=== PATIENT | female | born 1970 | race American Indian/Alaskan Native ===

== ENCOUNTER 2018-05-17 09:51 | Emergency (ER) | payer MEDICAID ==
[2018-05-17] MEDS ORDERED: NACL 0.9% 1000 ML 1,000 ML IV ONE (10:35)
[2018-05-17] MEDS ORDERED: DILAUDID ONE (10:56)
[2018-05-17] MEDS ORDERED: ZOFRAN ONE (10:56)
--- NOTE | 2018-05-17 10:57 | Emergency Department Report ---
ED Abdominal Pain HPI - General Chief Complaint: Abdominal Pain Stated Complaint: INGUINAL HERNIA RUPTURE Time Seen by Provider: 05/17/18 10:54 Source: patient Mode of arrival: Wheelchair Limitations: No Limitations - History of Present Illness Initial Comments: Patient is a 48-year-old female that presents to emergency with complaints of bilateral inguinal pain and lower abdominal pain. Patient states she's had 4 surgeries for hernia repair. Patient states she currently has a mesh in place and patient is having intense 10 out of 10 pain. Patient states the pain is not radiating. He states the pain is worse with movement and better with position and rest. Patient also complaining of not having a bowel movement for 2 days. Patient is also complaining of intractable nausea and vomiting 2 days. Patient denies blood in her stool. Patient denies blood in her vomitus MD Complaint: abdominal pain -: Sudden, days(s) (3 days) Location: LLQ, RLQ Radiation: none Migration to: no migration Severity: severe Severity scale (0 -10): 10 Quality: stabbing Consistency: constant Improves With: rest Worsens With: vomiting, movement Associated Symptoms: nausea, vomiting, constipation. denies: diarrhea, fever, chills, dysuria, hematemesis, hematochezia, melena, hematuria, anorexia - Related Data LMP (females 10-50): this week Previous Rx's Medication Instructions Recorded Last Taken Type Clindamycin [Cleocin] 300 mg PO Q8H #21 cap 06/28/14 Unknown Rx Ibuprofen [Motrin] 600 mg PO Q8H PRN #60 tablet 06/28/14 Unknown Rx Mupirocin [Bactroban 2% Oint] 1 applic TP TID #1 tube 06/28/14 Unknown Rx HYDROcodone/APAP 5-325 [[place] 1 each PO Q6HR PRN #12 tablet 05/17/18 Unknown Rx 5-325 mg TAB] Ondansetron [Zofran Odt] 4 mg PO Q6HR PRN #15 tab.rapdis 05/17/18 Unknown Rx Allergies Allergy/AdvReac Type Severity Reaction Status Date / Time cephalexin monohydrate Allergy Swelling Verified 05/17/18 09:53 [From Keflex] Iodine and Iodide Containing Allergy Unknown Verified 05/17/18 09:53 Produc Penicillins Allergy Swelling Verified 05/17/18 09:53 Sulfa (Sulfonamide Allergy Unknown Verified 05/17/18 09:53 Antibiotics) ED Review of Systems ROS: Stated complaint: INGUINAL HERNIA RUPTURE Other details as noted in HPI Constitutional: denies: chills, fever Eyes: denies: eye pain, eye discharge, vision change ENT: denies: ear pain, throat pain Respiratory: denies: cough, shortness of breath, wheezing Cardiovascular: denies: chest pain, palpitations Endocrine: no symptoms reported Gastrointestinal: abdominal pain, nausea, vomiting, constipation. denies: diarrhea Genitourinary: denies: urgency, dysuria, discharge Musculoskeletal: denies: back pain, joint swelling, arthralgia Skin: denies: rash, lesions Neurological: denies: headache, weakness, paresthesias Psychiatric: denies: anxiety, depression Hematological/Lymphatic: denies: easy bleeding, easy bruising ED Past Medical Hx - Past Medical History Previous Medical History?: Yes Hx Diabetes: Yes (during ) Additional medical history: BORN with only one left KIDNEY - Surgical History Past Surgical History?: Yes Hx Appendectomy: Yes Additional Surgical History: HERNIA REPAIR 4 X - Family History Family history: no significant - Social History Smoking Status: Never Smoker Substance Use Type: None - Medications Home Medications: Home Medications Medication Instructions Recorded Confirmed Last Taken Type Clindamycin [Cleocin] 300 mg PO Q8H #21 cap 06/28/14 Unknown Rx Ibuprofen [Motrin] 600 mg PO Q8H PRN #60 tablet 06/28/14 Unknown Rx Mupirocin [Bactroban 2% Oint] 1 applic TP TID #1 tube 06/28/14 Unknown Rx HYDROcodone/APAP 5-325 [[place] 1 each PO Q6HR PRN #12 tablet 05/17/18 Unknown Rx 5-325 mg TAB] Ondansetron [Zofran Odt] 4 mg PO Q6HR PRN #15 tab.rapdis 05/17/18 Unknown Rx ED Physical Exam - General Limitations: No Limitations General appearance: alert, in no apparent distress - Head Head exam: Present: atraumatic, normocephalic - Eye Eye exam: Present: normal appearance - ENT ENT exam: Present: mucous membranes moist - Neck Neck exam: Present: normal inspection - Respiratory Respiratory exam: Present: normal lung sounds bilaterally. Absent: respiratory distress - Cardiovascular Cardiovascular Exam: Present: regular rate, normal rhythm. Absent: systolic murmur, diastolic murmur, rubs, gallop - GI/Abdominal GI/Abdominal exam: Present: soft, tenderness (bilateral tenderness. Left and right lower quadrant tenderness), normal bowel sounds - Extremities Exam Extremities exam: Present: normal inspection - Back Exam Back exam: Present: normal inspection - Neurological Exam Neurological exam: Present: alert, oriented X3 - Psychiatric Psychiatric exam: Present: normal affect, normal mood - Skin Skin exam: Present: warm, dry, intact, normal color. Absent: rash ED Course Vital Signs 05/17/18 05/17/18 05/17/18 09:53 10:49 11:00 Temperature 98.5 F Pulse Rate 84 Respiratory 16 Rate Blood Pressure 112/68 134/81 118/71 O2 Sat by Pulse 100 Oximetry 05/17/18 11:15 Temperature Pulse Rate Respiratory Rate Blood Pressure 107/61 O2 Sat by Pulse Oximetry - Reevaluation(s) Reevaluation #1: Initial evaluation done. Patient is complaining of significant nausea and vomiting as well as abdominal pain. Patient will be given pain medications and antibiotics. Patient will require CT scan however patient is allergic to IV dye and due to her nausea and will not be able to tolerate oral contrast. So a CT without IV and oral contrast will be done. 05/17/18 11:06 Patient states the pain is improved. Patient states the pain is 2 out of 10. Patient states the nausea and vomiting have resolved. 05/17/18 13:15 Discussed all results with patient. Patient is stable for discharge. Patient will be discharged home. Patient given discharge instructions. Patient given follow-up instructions. Patient was understanding of all structures. 05/17/18 13:28 ED Medical Decision Making - Lab Data Result diagrams: 05/17/18 10:46 05/17/18 10:46 - Radiology Data Radiology results: report reviewed CT ABDOMEN PELVIS WITHOUT CONTRAST: HISTORY: abdominal pain. COMPARISON: none. TECHNIQUE: Helical CT in 1.25mm intervals without IV contrast. Sagittal and coronal reconstructions. FINDINGS: Lung bases: Normal. Liver: Normal. Biliary system: Normal. Pancreas: Normal. Spleen: Normal. Kidneys/ureters/bladder: The right kidney is low lying and rotated laterally. The left kidney is unremarkable. The ureters and bladder are within normal limits. Adrenal glands: Normal. Aorta: Normal. Intestines: Normal. Appendix: Normal. Pelvic viscera: A 3.1 cm right ovarian cyst is identified. The left adnexa and uterus are unremarkable. Bilateral Essure devices are in place. Ascites: Small pelvic ascites. Adenopathy: None. Musculoskeletal: Normal. IMPRESSION: 3.1 cm right ovarian cyst and small pelvic ascites. Right renal ectopia. - Medical Decision Making Patient is a 48-year-old female presents to [facility] with extreme abdominal pain and inguinal pain. Patient's CT abdomen was negative. I discussed the case with Dr. Levy and Dr. Levy agrees with the patient is stable and can be discharged home. Patient will follow-up with Dr. Levy in his office. Patient's findings are consistent with a gastroenteritis and abdominal pain. Patient responded well to therapy. Patient will be discharged home. Patient tolerated by mouth intake. Patient nausea vomiting and pain resolved prior to discharge. Patient given discharge instructions. Patient given medication instructions. UA is negative for UTI. - Differential Diagnosis abdominal pain. Inguinal hernia. Gastroenteritis. Nausea vomiting Critical care attestation.: If time is entered above; I have spent that time in minutes in the direct care of this critically ill patient, excluding procedure time. ED Disposition Clinical Impression: Gastroenteritis Abdominal pain Qualifiers: Abdominal location: lower abdomen, unspecified Qualified Code(s): R10.30 - Lower abdominal pain, unspecified Nausea & vomiting Qualifiers: Vomiting type: unspecified Vomiting Intractability: non-intractable Qualified Code(s): R11.2 - Nausea with vomiting, unspecified Ovarian cyst Qualifiers: Laterality: right Qualified Code(s): N83.201 - Unspecified ovarian cyst, right side Disposition: TO HOME OR SELFCARE Is pt being admited?: No Does the pt Need Aspirin: No Condition: Stable Instructions: Ovarian Cyst (ED), Gastroenteritis (ED), Acute Nausea and Vomiting (ED), Abdominal Pain (ED) Additional Instructions: To follow-up with primary care in 2-3 days. Patient to follow up with general surgeon, Dr. Levy in 2-3 days. Patient to return to ER if condition worsens. Patient eat a brat diet. Patient to rest. Patient to increase water. Patient to take meds as instructed. Patient states on or ibuprofen when necessary for pain. Prescriptions: HYDROcodone/APAP 5-325 [[place] 5-325 mg TAB] 1 each PO Q6HR PRN #12 tablet PRN Reason: Pain Ondansetron [Zofran Odt] 4 mg PO Q6HR PRN #15 tab.rapdis PRN Reason: Nausea And Vomiting Referrals: NAVJTO RAMOS MD [Primary Care Provider] - 2-3 Days BRISEYDA LEVY MD [Staff Physician] - 2-3 Days Time of Disposition: 13:33
[2018-05-17] MEDS ORDERED: ZOFRAN IV ONE (11:01)
[2018-05-17] MEDS ORDERED: DILAUDID IV ONE (11:01)
[2018-05-17 11:03] LABS: Basophils # (Auto) 0.1 K/mm3 (0.0-0.1); Basophils % (Auto) 0.8 % (0.0-1.8); Eosinophils # (Auto) 0.2 K/mm3 (0.0-0.4); Eosinophils % (Auto) 1.9 % (0.0-4.3); Hematocrit 42.9 % (30.3-42.9); Hemoglobin 14.2 gm/dl (10.1-14.3); Lymphocytes # (Auto) 2.6 K/mm3 (1.2-5.4); Lymphocytes % (Auto) 24.1 % (13.4-35.0); Mean Corpuscular HGB Conc 33 % (30-34); Mean Corpuscular Volume 94 fl (79-97); Monocytes # (Auto) 0.5 K/mm3 (0.0-0.8); Monocytes % (Auto) 4.5 % (0.0-7.3); Red Blood Count 4.55 M/mm3 (3.65-5.03); Red Cell Distribution Width 13.1 % (13.2-15.2)
[2018-05-17 11:13] LABS: Platelet Count 250 K/mm3 (140-440)
[2018-05-17 11:27] LABS: Alanine Aminotransferase 11 units/L (7-56); Albumin 4.4 g/dL (3.9-5); BUN/Creatinine Ratio 11; Blood Urea Nitrogen 8 mg/dL (7-17); Calcium 9.5 mg/dL (8.4-10.2); Hemolysis Index 10
[2018-05-17 11:59] VITALS: BP 107/61
--- NOTE | 2018-05-17 13:03 | Cat Scan Report ---
CT ABDOMEN PELVIS WITHOUT CONTRAST: HISTORY: abdominal pain. COMPARISON: none. TECHNIQUE: Helical CT in 1.25mm intervals without IV contrast. Sagittal and coronal reconstructions. FINDINGS: Lung bases: Normal. Liver: Normal. Biliary system: Normal. Pancreas: Normal. Spleen: Normal. Kidneys/ureters/bladder: The right kidney is low lying and rotated laterally. The left kidney is unremarkable. The ureters and bladder are within normal limits. Adrenal glands: Normal. Aorta: Normal. Intestines: Normal. Appendix: Normal. Pelvic viscera: A 3.1 cm right ovarian cyst is identified. The left adnexa and uterus are unremarkable. Bilateral Essure devices are in place. Ascites: Small pelvic ascites. Adenopathy: None. Musculoskeletal: Normal. IMPRESSION: 3.1 cm right ovarian cyst and small pelvic ascites. Right renal ectopia.
[2018-05-17 14:18] LABS: Bilirubin,Urine NEG (Negative); Blood,Urine SM (Negative); Color,Urine Yellow (Yellow); Mucus,Urine FEW /HPF; Protein,Urine <15 mg/dL mg/dL (Negative); Urobilinogen,Urine < 2.0 mg/dL (<2.0)
== END 2018-05-17 14:42 | disposition home or self-care (01) ==
LOC: ED 09:51
DX: K52.9 Noninfective gastroenteritis and colitis, unspecified (principal); N83.201 Unspecified ovarian cyst, right side; E11.9 Type 2 diabetes mellitus without complications; Z90.49 Acquired absence of other specified parts of digestive tract; Z79.899 Other long term (current) drug therapy; Z88.0 Allergy status to penicillin; Z88.2 Allergy status to sulfonamides; Z91.09 Other allergy status, other than to drugs and biological substances; Z88.8 Allergy status to other drugs, medicaments and biological substances
CPT/HCPCS: 36415; 74176; 80053; 81001; 84703; 85025; 96361; 96374; 96375; 99284; J1170; J2405; J7030

== ENCOUNTER 2018-07-25 07:46 | Outpatient (CLI) | payer MEDICAID ==
--- NOTE | 2018-07-25 09:18 | Mammography Report ---
Bilateral diagnostic mammogram: No previous studies available. CAD study utilized. History: Palpable region upper outer left breast, suspected mass. Findings: Scattered glandular parenchyma bilaterally. Density/mass upper outer left breast region of palpable area. Focal 8mm asymmetry inner left breast. Benign calcifications. Normal axilla. Sonographic examination reveals hypoechoic irregular mass with internal flow 1:00 position corresponding to palpable mass. Measures 1.7 x 1.1 cm. Benign appearing lymph node left axilla. Cysts at 2:00 position 3 cm from nipple measuring 0.26 cm in diameter. Impression: Mass 1:00 position 8 cm from nipple, suspicious for neoplasm. Recommend biopsy. BI-RADS CATEGORY: 4 = Suspicious ACR BI-RADS MAMMOGRAPHIC CODES: 0 = Needs additional imaging evaluation; 1 = Negative; 2 = Benign; 3 = Probably benign; 4 = Suspicious; 5 = Malignant; 6 = Known biopsy-proven malignancy COMMENT: 1. Dense breast tissue, i.e., adenosis, fibrocystic changes, etc., may obscure an underlying neoplasm. 2. Approximately 10% of cancers are not detected with mammography. 3. A negative mammography report should not delay biopsy if a clinically suspicious mass is present. COMMENT: Patient follow-up letters are generated in [employer].
== END 2018-07-25 07:47 | disposition home or self-care (01) ==
LOC: MAMMO 07:46
PROVIDERS: ATTEND Advanced Practice Midwife
DX: N60.02 Solitary cyst of left breast (principal)
CPT/HCPCS: 77066

== ENCOUNTER 2018-08-09 13:01 | Outpatient (CLI) | payer MEDICAID ==
--- NOTE | 2018-08-09 14:11 | Mammography Report ---
LEFT DIGITAL DIAGNOSTIC MAMMOGRAM: 08/09/18 13:01:00 CLINICAL: For clip placement immediately status post ultrasound biopsy. COMPARISON:07/25/18 FINDINGS: A biopsy clip is now identified at 1 o'clock 8 cm from the nipple. IMPRESSION: Concordant clip placement status post ultrasound biopsy. BI-RADS CATEGORY: 4--Suspicious Pathology pending.
--- NOTE | 2018-08-09 14:28 | Ultrasound Report ---
ULTRASOUND GUIDED NEEDLE CORE BIOPSY LEFT BREAST WITH CLIP PLACEMENT: 08/09/18 13:00:00 CLINICAL: Left breast mass at 1:30 o'clock 8 cm from the nipple. COMPARISON :07/25/18 FINDINGS: The procedure was explained to the patient and informed consent was obtained. Ultrasound demonstrated the previously described solid irregular hypoechoic mass. I marked the breast with a felt tip marker and a time out was called. The skin was prepped with Betadine and anesthetized with 1% lidocaine. Needle core biopsy was performed through a tiny dermatotomy using ultrasound guidance, 2% lidocaine with epinephrine for deep anesthesia and a 14-gauge Achieve biopsy device. 3 cores were obtained and placed in formalin. A clip was deployed within the mass. The patient tolerated the procedure well and there were no apparent complications. Hemostasis was achieved with minimal pressure and a sterile dressing was applied. A two view mammogram demonstrated satisfactory clip deployment. She left the department in good condition and was given instructions for wound care and followup. IMPRESSION: Uncomplicated ultrasound guided needle core biopsy with clip placement left breast.
== END 2018-08-09 13:02 | disposition home or self-care (01) ==
LOC: SPVWC 13:01
PROVIDERS: ATTEND Advanced Practice Midwife
DX: C50.412 Malignant neoplasm of upper-outer quadrant of left female breast (principal); Z88.0 Allergy status to penicillin; Z88.2 Allergy status to sulfonamides; Z91.041 Radiographic dye allergy status; Z79.899 Other long term (current) drug therapy; Z90.49 Acquired absence of other specified parts of digestive tract; Z88.8 Allergy status to other drugs, medicaments and biological substances
CPT/HCPCS: 88305; 88341; 88342

== ENCOUNTER 2018-08-23 10:35 | Outpatient (CLI) | payer MEDICAID ==
--- NOTE | 2018-08-23 11:54 | Ultrasound Report ---
ULTRASOUND GUIDED NEEDLE CORE BIOPSY OF A LEFT AXILLARY LYMPH NODE WITH CLIP PLACEMENT : 08/23/18 10:35:00 CLINICAL: Left breast cancer with abnormal left axillary lymph nodes. COMPARISON :07/25/18 FINDINGS: The procedure was explained to the patient and informed consent was obtained. Ultrasound demonstrated several suspicious lymph nodes with thickened cortex. The skin in the axilla was prepped with Betadine and anesthetized with 1% lidocaine. Ultrasound guided needle core biopsy of the lymph node was performed through a small dermatotomy using 2% lidocaine with epinephrine for deep anesthesia and a 18-gauge Achieve biopsy device. 2 samples were obtained and placed in formalin. A clip was deployed within the lymph node. Hemostasis was achieved with minimal pressure and a sterile dressing was applied. The patient tolerated the procedure well and there were no apparent complications. She was discharged in good condition and was given instructions for wound care and followup. IMPRESSION: Uncomplicated ultrasound-guided needle core biopsy of a left lymph node with clip placement.
== END 2018-08-23 10:36 | disposition home or self-care (01) ==
LOC: SPVWC 10:35
PROVIDERS: ATTEND Surgery
DX: C77.9 Secondary and unspecified malignant neoplasm of lymph node, unspecified (principal); C50.412 Malignant neoplasm of upper-outer quadrant of left female breast; Z88.2 Allergy status to sulfonamides; Z88.0 Allergy status to penicillin; Z91.041 Radiographic dye allergy status; Z88.8 Allergy status to other drugs, medicaments and biological substances; Z79.899 Other long term (current) drug therapy; Z90.49 Acquired absence of other specified parts of digestive tract
CPT/HCPCS: 38505; 76942; 88305

== ENCOUNTER 2018-08-31 07:34 | Day surgery (SDC) | payer MEDICAID ==
--- NOTE | 2018-08-31 09:16 | Anesthesia Consultation ---
Anesthesia Consult and Med Hx Date of service: 08/31/18 - Airway Anesthetic Teeth Evaluation: Good ROM Head & Neck: Adequate Mental/Hyoid Distance: Adequate Mallampati Class: Class II Intubation Access Assessment: Good - Pulmonary Exam CTA: Yes - Cardiac Exam Cardiac Exam: RRR - Pre-Operative Health Status ASA Pre-Surgery Classification: ASA2 Proposed Anesthetic Plan: General, MAC - Pulmonary Hx Smoking: No - Other Systems Hx Alcohol Use: Yes (occasional) - Additional Comments Anesthesia Medical History Comments: For port placement GA vs MAC
--- NOTE | 2018-08-31 09:16 | Anesthesia Day of Surgery ---
Anesthesia Day of Surgery - Day of Surgery Patient Examined: Yes Patient H&P Reviewed: Yes Patient is NPO: Yes
[2018-08-31] MEDS ORDERED: VANCOMYCIN/NS 1 GM/250 ML 1 GM/250 ML BAG IV NR (10:30)
[2018-08-31] MEDS ORDERED: LACTATED RINGERS 1,000 ML IV SCH (11:00)
[2018-08-31] MEDS ORDERED: XYLOCAINE 1% 20 mL ONE (11:06)
[2018-08-31] MEDS ORDERED: HEPARIN 10,000 UNITS/10 ML ONE (11:07)
[2018-08-31] MEDS ORDERED: MARCAINE 0.25% INFILTRATI ONE ×4 (11:07→11:42)
[2018-08-31] MEDS ORDERED: NACL 0.9% 100 ML ONE (11:07)
[2018-08-31] MEDS ORDERED: VERSED ONE (11:12)
[2018-08-31] MEDS ORDERED: PEPCID IV ONE (11:13)
[2018-08-31] MEDS ORDERED: XYLOCAINE 1% 20 mL INFILTRATI ONE ×3 (11:14→11:42)
[2018-08-31] MEDS ORDERED: DIPRIVAN 10 MG/ML IV ONE ×6 (11:19→11:21)
[2018-08-31] MEDS ORDERED: HEPARIN 10,000 UNITS/10 ML IV ONE ×3 (11:30→12:21)
[2018-08-31] MEDS ORDERED: NACL 0.9% IV ONE ×2 (11:30→11:45)
[2018-08-31] MEDS ORDERED: ZOFRAN ONE (12:14)
--- NOTE | 2018-08-31 12:37 | Short Stay Summary ---
Short Stay Documentation Date of service: 08/31/18 - History Principal diagnosis: left breast cancer H&P: obtained from office - Allergies and Medications Current Medications: Allergies cephalexin monohydrate [From Keflex] Allergy (Verified 05/17/18 09:53) Swelling Iodine and Iodide Containing Produc Allergy (Verified 05/17/18 09:53) Unknown Penicillins Allergy (Verified 05/17/18 09:53) Swelling Sulfa (Sulfonamide Antibiotics) Allergy (Verified 05/17/18 09:53) Unknown Home Medications Medication Instructions Recorded Confirmed Last Taken Type Clindamycin [Cleocin] 300 mg PO Q8H #21 cap 06/28/14 Unknown Rx Ibuprofen [Motrin] 600 mg PO Q8H PRN #60 tablet 06/28/14 Unknown Rx Mupirocin [Bactroban 2% Oint] 1 applic TP TID #1 tube 06/28/14 Unknown Rx HYDROcodone/APAP 5-325 [[place] 1 each PO Q6HR PRN #12 tablet 05/17/18 Unknown Rx 5-325 mg TAB] Ondansetron [Zofran Odt] 4 mg PO Q6HR PRN #15 tab.rapdis 05/17/18 Unknown Rx Active Medications Vancomycin HCl (Vancomycin/Ns 1 Gm/250 Ml) 1 gm in 250 mls @ 167.007 mls/hr IV PREOP NR; Protocol Stop: 08/31/18 15:00 Lactated Ringer's (Lactated Ringers) 1,000 mls @ 75 mls/hr IV DIRECT ABBI - Brief post op/procedure progress note Date of procedure: 08/31/18 Pre-op diagnosis: left breast cancer Post-op diagnosis: same Procedure: right internal jugular port a cath insertion using mindray ultrasound, fluoroscopy Anesthesia: GETA, local Findings: good placement of port without PTX on post op CXR Surgeon: GORDON CAN Estimated blood loss: minimal Pathology: none Condition: stable - Hospital course Hospital course: Pt observed in PACU and discharged to home in stable condition once criteria was met - Disposition Condition at discharge: Good Disposition: DC-01 TO HOME OR SELFCARE Short Stay Discharge Plan Activity: no restrictions Diet: regular Wound: open to air, per your surgeon's advice Additional Instructions: SEE PRINTED DISCHARGE INSTRUCTIONS [facility] YISSEL [Primary Care Provider] - 7 Days GORDON CAN DO [Staff Physician] - 14 Days Prescriptions: Ibuprofen [Motrin 800 MG tab] 800 mg PO Q8HR PRN #30 tablet PRN Reason: Pain, Moderate (4-6)
--- NOTE | 2018-08-31 13:13 | Fluoroscopy Report ---
FLUOROSCOPY CENTRAL VENOUS DEVICE PLACEMENT History: Breast cancer, Ifhrsk-v-Hdvh insertion. Findings: Single AP view of the chest is presented. A right IJ Eiybkm-n-Mnhn has been inserted which terminates in the superior right atrium. The lungs are clear. There is no evidence for pneumothorax. Normal heart and mediastinal structures. Normal bony thorax. Impression: [id number] placement. No pneumothorax.
[2018-08-31 15:08] VITALS: BP 107/78
--- NOTE | 2018-08-31 19:02 | Operative Report ---
PREOPERATIVE DIAGNOSIS: Left breast cancer. POSTOPERATIVE DIAGNOSIS: Left breast cancer. PROCEDURE: Right internal jugular Port-A-Cath insertion using Mindray ultrasound guidance and fluoroscopy. ANESTHESIA: LMA with local. FINDINGS: Good placement of port without pneumothorax and postop chest x-ray. SURGEON: Radha López DO ESTIMATED BLOOD LOSS: Minimal. PATHOLOGY: None. CONDITION AND DISPOSITION: The patient is stable to PACU. HISTORY OF PRESENT ILLNESS AND INDICATIONS: The patient is a 48-year-old female who was diagnosed with newly diagnosed left-sided breast cancer and is a candidate for chemotherapy. Her oncologist is Dr. Javed. The patient is scheduled to start chemotherapy in 1 week. She presented to the office for evaluation. All risks, benefits and alternatives of the surgery were discussed with the patient. Questions answered. Consent was obtained. PROCEDURE IN DETAIL: The patient was identified in the preoperative area and taken back to the operating room and placed on the operating table in supine position. After anesthesia was induced, bilateral upper chest and neck were prepped and draped in the usual sterile fashion. A timeout was performed. Bilateral arms were tucked with bony prominences padded and a shoulder roll was placed across the shoulders. Timeout was performed. Using Mindray ultrasound, the left subclavian vein was identified. The patient was placed in Trendelenburg position and a local anesthetic was infiltrated into the skin at the intended puncture site. The subclavian vein was accessed two times with sluggish return of dark red nonpulsatile blood. The wire, however, was unable to be threaded both times even under fluoroscopic guidance. Therefore, the wire and needle were removed and pressure was held both times and the decision was made to perform an internal jugular access. The internal jugular vein was identified on ultrasound guidance and was very small; however, I was able to be accessed on the first stick. There was return of dark red nonpulsatile blood. A wire was threaded through the needle without resistance and the position confirmed using fluoroscopy. The needle was removed. Local anesthetic was infiltrated into the right upper chest at the intended incision site and a 4 cm transverse incision was made using a 15 blade. Dissection was carried down through the skin and subcutaneous tissue using Bovie electrocautery until the prepectoral fascia was identified. Then, a subcutaneous pocket was made for the port using combination of blunt dissection and electrocautery. The pocket was checked for hemostasis, which was carefully ensured. The tunneler and catheter were then tunneled from the pocket to the wire. The dilator and catheter sheath was then inserted over the wire and advanced under fluoroscopic guidance. The wire and dilator were removed and the catheter threaded through the break-away sheath and the break-away sheath removed. The catheter laid flush into the skin. Using fluoroscopic guidance, the catheter was pulled back until the tip was seen in the right atrium. The catheter was cut to size and assembled in the usual fashion. The pocket was once again irrigated until the irrigant returned clear and hemostasis was carefully ensured. The port was then sutured into the pocket using interrupted 2-0 Vicryl sutures. The port was tested with heparinized saline. There was return of dark red blood and the port flushed easily. The port was then instilled with 3000 units of heparin. The incision was then closed in a 2-layer fashion. The deep dermal layer was closed with 3-0 Vicryl interrupted sutures. Both skin incisions were closed with 4-0 Monocryl subcuticular stitches and skin glue. At the end of the case, all sponge, instrument, sharp counts were correct x 2. Postoperative chest x-ray performed in the operating room showed good position of the port without pneumothorax. The patient was awoken from anesthesia and taken to PACU in stable condition. JOB# [id number] KANE/EDUARDO
== END 2018-08-31 07:35 | disposition home or self-care (01) ==
LOC: OR 07:34
PROVIDERS: ATTEND Surgery
DX: C50.912 Malignant neoplasm of unspecified site of left female breast (principal); Z79.899 Other long term (current) drug therapy; Z88.0 Allergy status to penicillin; Z91.041 Radiographic dye allergy status; Z88.2 Allergy status to sulfonamides; Z88.8 Allergy status to other drugs, medicaments and biological substances; Z90.49 Acquired absence of other specified parts of digestive tract; Z72.89 Other problems related to lifestyle; Z98.890 Other specified postprocedural states
CPT/HCPCS: 36561; 77001; C1788; J1644; J2250; J2405; J2704; J3370; J7120

== ENCOUNTER 2018-09-19 08:01 | Outpatient (CLI) | payer MEDICAID ==
--- NOTE | 2018-09-20 10:27 | Magnetic Resonance Report ---
BILATERAL BREAST MRI WITHOUT AND WITH CONTRAST CLINICAL: Newly diagnosed left breast cancer. Status post ultrasound-guided needle biopsy of a left b reast mass on 08/09/2018 with pathologic diagnosis of invasive carcinoma NOS, [place] grade 3/3. ER weakly positive/CT negative/HER-2 negative and Ki-67 90%. Ultrasound-guided biopsy of a left axillar y lymph node on 08/23/2018 revealed metastatic carcinoma. TECHNIQUE: Axial 1.0 mm T1 without, axial high-resolution 2.0 mm T2 and axial 1.0 mm dynamic vibrant high-resolution postcontrast T1 fat saturation sequences on a 1.5 Nia magnet. Examination was perfo rmed with an 8-channel dedicated [employer] breast coil. Postprocessing with CAD and subtraction was p erformed on an [employer] workstation. 20 cc of MultiHance was injected without incident for the contraste d portion of the exam. Consent was obtained prior to the administration of the contrast. FINDINGS: Right: Minimal background parenchymal enhancement. No mass or suspicious enhancement. No suspicious r ight axillary or right internal mammary lymph nodes. Left: Minimal background parenchymal enhancement. An irregular enhancing mass with a biopsy clip at 1 0:00 9 cm from the nipple measures 14.5 x 11.0 x 11.0 mm. It demonstrates heterogeneous enhancement w ith mixed kinetics, 119% peak enhancement and 14% type III washout. No other mass or suspicious enhan cement of the left breast. A 2.0 cm left axillary lymph node has abnormal morphology and correlates w ith the recently biopsied lymph node. No suspicious internal mammary lymph nodes. IMPRESSION: 1. A known 1.5 cm left breast cancer and no additional suspicious lesion of either breast. 2. A known metastatic left axillary lymph node and no other suspicious lymph nodes. BI-RADS 6--Known Cancer Signer Name: Luis Méndez MD Signed: 09/20/2018 10:22 AM Workstation Name: [id number]
== END 2018-09-19 08:02 | disposition home or self-care (01) ==
LOC: SPVIMAG 08:01
PROVIDERS: ATTEND Surgery
DX: C50.412 Malignant neoplasm of upper-outer quadrant of left female breast (principal)
CPT/HCPCS: A9577; C8908; 77049

== ENCOUNTER 2019-01-02 11:02 | Outpatient (CLI) | payer MEDICAID ==
--- NOTE | 2019-01-02 13:53 | Ultrasound Report ---
LEFT DIGITAL DIAGNOSTIC MAMMOGRAM WITH CAD -- 01/02/2019 LEFT COMPLETE BREAST ULTRASOUND INDICATION: Left breast cancer follow up after chemotherapy. TECHNIQUE: Digital left mammographic imaging was performed. Complete ultrasound of all four (4) quad rants was performed. This examination was interpreted with the benefit of Computer-Aided Detection (C AD) analysis. COMPARISON: 07/25/2018 FINDINGS: Breast Density: The breast is heterogeneously dense, which may obscure small masses. MAMMOGRAPHIC FINDINGS: No mass, architectural distortion or suspicious calcifications. A biopsy clip is identified far lateral and there is no residual mass at the clip. ULTRASOUND FINDINGS: Complete sonographic evaluation of all 4 quadrants and retroareolar region was p erformed. A biopsy clip is identified at the site of the cancer at 1:30 o'clock 8 cm from the nippl e. No mass or suspicious shadowing. IMPRESSION: A complete ultrasound response to chemotherapy and no mammographic evidence of tumor. Follow up recommendation: Back to schedule. BI-RADS Category 6: Known Biopsy-Proven Malignancy. A "normal" or negative report should not discourage follow up or biopsy of a clinically significant f inding. A written summary of these findings will be mailed to the patient. The patient will be entered into a mammography reporting system which will generate a reminder letter for the patient's next appointmen t at the appropriate interval. According to the [employer], yearly mammograms are recommended starting at age 40 and continuing as long as a woman is in good health. Breast MRI is recommended for women with an wm roximately 20-25% or greater lifetime risk of breast cancer, including women with a strong family his tory of breast or ovarian cancer and women who have been treated for Hodgkin's disease. Signer Name: Luis Méndez MD Signed: 01/02/2019 1:49 PM Workstation Name: [id number]
== END 2019-01-02 11:03 | disposition home or self-care (01) ==
LOC: SPVWC 11:02
PROVIDERS: ATTEND Surgery
DX: C50.412 Malignant neoplasm of upper-outer quadrant of left female breast (principal); Z90.89 Acquired absence of other organs; R92.8 Other abnormal and inconclusive findings on diagnostic imaging of breast

== ENCOUNTER 2019-02-28 06:36 | Observation (INO) | payer MEDICAID ==
--- NOTE | 2019-02-27 10:32 | Anesthesia Consultation ---
Anesthesia Consult and Med Hx Date of service: 02/27/19 - Airway Anesthetic Teeth Evaluation: Good ROM Head & Neck: Adequate Mental/Hyoid Distance: Adequate Mallampati Class: Class II Intubation Access Assessment: Good - Pulmonary Exam CTA: Yes - Cardiac Exam Cardiac Exam: RRR - Pre-Operative Health Status ASA Pre-Surgery Classification: ASA3 Proposed Anesthetic Plan: General (Hx of breast Ca, fibromyalgia , neuropathy post chemo for GA with possible PEC blocks) - Pulmonary Hx Smoking: Yes (QUIT 20 YRS AGO) - Other Systems Hx Alcohol Use: Yes (occasional) Hx Substance Use: No Hx Cancer: Yes
[~2019-02-28 06:36] MED LIST: BACITRACIN 50,000 UNIT VIAL IR ONE; CELECOXIB 200 MG CAP PO NR; GABAPENTIN 300 MG CAP PO NR; GENTAMICIN 40 MG/ML VIAL 2 ML IV ONE; METHYLENE BLUE 50 MG/10 ML AMP IRRIGATION ONE; MIDAZOLAM 2 MG/2 ML INJ IV NR; SODIUM CHLORIDE 0.9% IRR 1,000 ML BOTTLE IR ONE; SODIUM CHLORIDE 0.9% P/F 10 ML VIAL INFILTRATI ONE; WATER FOR IRRIG STERILE 1,500 ML BOTTLE IR ONE; fentaNYL 100 MCG/2 ML INJ IV NR
--- NOTE | 2019-02-28 07:22 | Anesthesia Day of Surgery ---
Anesthesia Day of Surgery - Day of Surgery Patient Examined: Yes Patient H&P Reviewed: Yes Patient is NPO: Yes
[2019-02-28] MEDS ORDERED: BACITRACIN 50,000 UNIT VIAL ONE (07:36)
[2019-02-28] MEDS ORDERED: SODIUM CHLORIDE P/F VIAL 10 ML 20 ML ONE (07:36)
[2019-02-28] MEDS ORDERED: METHYLENE BLUE 50 MG/10 ML AMP ONE (07:37)
[2019-02-28] MEDS ORDERED: GENTAMICIN 40 MG/ML VIAL 2 ML ONE (07:37)
[2019-02-28] MEDS: LACTATED RINGERS 1,000 ML IV SCH (07:45)
[2019-02-28] MEDS ORDERED: BUPIVACAINE-EPINEPHRINE/PF 0.5%-1:200,000 (30 ML) VIAL INFILTRATI ONE (07:58)
[2019-02-28] MEDS ORDERED: LIDOCAINE (1%) 10 MG/1 ML VIAL 20 ML MDV ONE (07:59)
[2019-02-28] MEDS ORDERED: GABAPENTIN 300 MG CAP PO NR (08:00)
[2019-02-28] MEDS ORDERED: MIDAZOLAM 2 MG/2 ML INJ IV NR (08:00)
[2019-02-28] MEDS ORDERED: HYDROmorphone 1 MG/1 ML INJ IV PRN ×2 (08:00→09:09)
[2019-02-28] MEDS ORDERED: ONDANSETRON 4 MG/2 ML INJ IV PRN ×2 (08:00→17:05)
[2019-02-28] MEDS ORDERED: VANCOMYCIN/NS 1 GM/250 ML 1 GM/250 ML BAG IV NR (08:00)
[2019-02-28] MEDS ORDERED: ACETAMINOPHEN 500 MG TAB PO NR (08:00)
[2019-02-28] MEDS ORDERED: fentaNYL 100 MCG/2 ML INJ IV NR (08:10)
[2019-02-28] MEDS ORDERED: fentaNYL 250 MCG/5 ML INJ ONE (09:30)
[2019-02-28] MEDS ORDERED: PROPOFOL 200 MG/20 ML VIAL IV ONE (09:30)
[2019-02-28] MEDS ORDERED: ROCURONIUM 50 MG/5 ML INJ IV ONE ×2 (09:31→17:13)
[2019-02-28] MEDS ORDERED: LIDOCAINE MPF (2%) 20 MG/1 ML VIAL 5 ML ONE (09:31)
[2019-02-28] MEDS ORDERED: KETAMINE/STERILE WATER 50 MG/ML SYRINGE ONE (09:31)
[2019-02-28] MEDS ORDERED: METHYLENE BLUE 50 MG/10 ML AMP IRRIGATION ONE (09:49)
[2019-02-28] MEDS ORDERED: SODIUM CHLORIDE 0.9% P/F 10 ML VIAL INFILTRATI ONE (09:49)
[2019-02-28] MEDS ORDERED: ONDANSETRON 4 MG/2 ML INJ ONE ×2 (10:17→19:39)
[2019-02-28] MEDS ORDERED: dexAMETHasone 20 MG/5 ML VIAL ONE (10:17)
[2019-02-28] MEDS ORDERED: BACITRACIN ZINC OINT 28.4 GM TP ONE (12:08)
[2019-02-28] MEDS ORDERED: HYDROmorphone 1 MG/1 ML INJ ONE ×2 (13:09→19:16)
[2019-02-28] MEDS ORDERED: ALPRAZolam 0.5 MG TAB PO PRN (17:04)
[2019-02-28] MEDS ORDERED: METOCLOPRAMIDE 10 MG TAB PO PRN (17:05)
[2019-02-28] MEDS ORDERED: ACETAMINOPHEN 325 MG TAB PO PRN (17:05)
[2019-02-28] MEDS ORDERED: diphenhydrAMINE 25 MG CAP PO PRN (17:05)
--- NOTE | 2019-02-28 17:35 | Operative Report ---
Operative Report Operative Report: Operative Report: Date of Service: February 28, 2019 Preoperative diagnosis: Left breast cancer of the upper outer quadrant Postoperative diagnosis: Same Procedure: Right nipple sparing mastectomy and left nipple sparing mastectomy with sentinel lymph node biopsy Surgeon: Tanika Thacker M.D. Particle Board Supervisor: Yumiko Galeana M.D. Anesthesia: Gen. Findings: Left breast clip present within left total mastectomy. 5 sentinel lymph nodes identified and negative for malignancy on frozen section of pathology with prior positive axillary lymph node identified with clip present and negative for malignancy with fibrosis and reactive tissue present Complications: None Drains: Placed by plastic surgery Estimated blood loss: 100-150 cc Disposition: Plastic Surgery proceeded with bilateral tissue expanders Indications for operative procedure: This is a 49-year-old lady with stage II left breast cancer of the upper outer quadrant, IDCA grade 3 [id number] ER 10% (known cancer at 1:00 position 8 cm from the nipple). She completed neoadjuvant chemotherapy of AC/T and recommendations were to proceed with breast conservation and she wished to proceed with a prophylactic right nipple sparing mastectomy and left total nipple sparing mastectomy with SLNB and understood the possibility of an ALND if SLN was positive on frozen section, with immediate placement of bilateral tissue expanders/implants in conjunction with plastic surgery. She wished to proceed with the above procedure. Procedure in detail: The patient was taken to the operating room and was placed supine. Gen. anesthesia was administered. The left nipple was injected with radioisotope and 1 cc of methylene blue. Bilateral chest and axillas were prepped and draped in the normal sterile operative fashion. Timeout was performed. Bilateral inframammary fold incision markings were made. Attention was taken towards the right breast first. An incision was made at the inframammary fold using a 10 blade knife. First began with posterior dissection with dissecting the posterior breast tissue from the pectoralis muslce with dissection carried superiorly by raising of the superior flap posteriorly to the level of the clavicle superiorly, then dissection carried medially with raising of the medial flap posteriorly to the level of the sternum, followed by raising of the lateral flap posterioly to the level of the latissimus dorsi posteriorly. Attention was then taken towards raising of the superior flap with raising of the superior flap to the level of the clavicle superiorly and taken down posteriorly to the pectoralis muscle. Followed by raising of the medial flap to the level of the sternum and taken down posteriorly to the pectoralis muscle. Followed by raising of the lateral flap to the level of the latissimus dorsi muscle and taken down posteriorly. The mastectomy/breast was removed from the pectoralis muscle without incident. The specimen was appropriately marked and sent to pathology. Hemostasis was obtained using the bovie cautery. The port was noted and unharmed. Attention was taken towards the left axilla. A gamma probe was inserted into the axilla to identify the sentinel lymph node location with uptake noted. A skin incision was made in the axilla with a 10 blade knife and dissection taken down to the subcutaneous tissues. The axillary fascia was opened and the gamma probed was inserted into the axilla, 5 sentinel lymph nodes were identified with the gamma probe and nodes noted for blue dye. SLNs were dissected free and sent to pathology. The first SLN was noted with clip present and patient with history of node positive for malignancy. All remaining counts were less than 10% of highest count. Lymph nodes were sent to pathology with findings negative for malignancy noted on frozen section and first SLN noted for reactive changes with fibrosis present and negative for malignancy. Attention was taken towards the left breast. Ultrasound was used to identify prior biopsy clip at the 1:00 position 8 cm from the nipple. An incision was made at the inframammary fold using a 10 blade knife. First began with posterior dissection with dissecting the posterior breast tissue from the pectoralis muslce with dissection carried superiorly by raising of the superior flap post eriorly to the level of the clavicle superiorly, then dissection carried medially with raising of the medial flap posteriorly to the level of the sternum, followed by raising of the lateral flap posterioly to the level of the latissimus dorsi posteriorly. Attention was then taken towards raising of the superior flap with raising of the superior flap to the level of the clavicle superiorly and and taken down posteriorly to the pectoralis muscle. Followed by raising of the medial flap to the level of the sternum and taken down posteriorly to the pectoralis muscle. Followed by raising of the lateral flap to the level of the latissimus dorsi muscle and taken down posteriorly. The mastectomy/breast was removed from the pectoralis muscle without incident. The specimen was appropriately marked and sent to radiology with clip present and then sent to pathology. Hemostasis was obtained using the bovie cautery. Plastic surgery then proceeded with placement of bilateral implants.
[2019-02-28] MEDS ORDERED: GLYCOPYRROLATE 0.4 MG/2 ML INJ ONE (17:56)
[2019-02-28] MEDS ORDERED: NEOSTIGMINE 10MG/10 ML INJ MDV ONE (17:56)
[2019-02-28] MEDS ORDERED: LACTATED RINGERS 2,000 ML ONE (17:56)
[2019-02-28] MEDS ORDERED: LACTATED RINGERS 1,000 ML IV SCH (18:00)
[2019-02-28] MEDS ORDERED: LACTATED RINGERS 1,000 ML ONE (19:16)
--- NOTE | 2019-02-28 21:49 | Post Anesthesia Evaluation ---
- Post Anesthesia Evaluation Patient Participated: Yes Airway Patent: Yes Stable Respiratory Function: Yes Nausea/Vomiting: No Temp > 96.8F: Yes Pain Manageable: Yes Adequeate Hydration: Yes Anesthesia Complications: No Block Receding Appropriately: Not Applicable Patient on Ventilator: No
[2019-02-28] MEDS: GABAPENTIN 300 MG CAP PO SCH ×2 (21:54→22:03)
[2019-02-28] MEDS: DOCUSATE SODIUM 100 MG CAP PO SCH ×2 (21:55→22:02)
[2019-02-28] MEDS: MORPHINE 2 MG/1 ML INJ IV PRN (23:31)
[2019-03-01] MEDS: MORPHINE 2 MG/1 ML INJ IV PRN ×3 (05:03→18:06)
[2019-03-01] MEDS: LACTATED RINGERS 1,000 ML IV SCH ×2 (05:04→15:12)
--- NOTE | 2019-03-01 08:11 | XRay Report ---
CAPSULE ON A SPECIMEN RADIOGRAPH LEFT BREAST INDICATION: Left breast cancer. COMPARISON: 01/02/2019 mammogram FINDINGS: A localizer clip is identified within the whole breast specimen. IMPRESSION: 1. Status post mastectomy with excision of the known cancer.. Signer Name: Luis Méndez MD Signed: 03/01/2019 8:07 AM Workstation Name: [id number]
--- NOTE | 2019-03-01 09:36 | Progress Note ---
Subjective Date of service: 03/01/19 Interval history: Plastic Surgery Progress Patient is POD #1 s/p bilateral nipple sparing mastectomy with immediate reconstruction using a permanent silicone implant and FlexHD. She did well overnight, but is in immense pain this morning stating that her last dose was at 5 am and she has a pill phobia so she cannot take pain meds. She denies nausea or vomiting, fever or chills. She has been OOB to ambulate to the bathroom. Exam: AFVSS NICOLE drains in place with serosanguinous output, functional Bilateral breasts no hematoma, seroma, or evidence of infection. Skin is mildly hyperemic consistent with bruising due to the nature of the procedure. Appropriately tender. Lateral and inferior ecchymosis developing. Dressings clean, dry and intact. A/P: POD #1 s/p bilateral nipple sparing mastectomy with immediate reconstruction using a permanent silicone implant and FlexHD. Will need to adjust pain meds to IV/liquid PO only for better pain control. Also adjusting home meds to this new information. OOB to chair as tolerated. Continue SCD's in bed. Increase PO Fluid intake; continue LR until taking full PO. Drain care teaching prior to discharge. Plan is for discharge this afternoon. Objective - Constitutional Vitals: Vital Signs - 12hr 02/28/19 03/01/19 03/01/19 23:31 01:26 05:03 Temperature 97.3 F L Pulse Rate 62 Respiratory 18 16 18 Rate Blood Pressure 138/86 O2 Sat by Pulse 99 Oximetry 03/01/19 06:07 Temperature 97.7 F Pulse Rate 73 Respiratory 18 Rate Blood Pressure 119/69 O2 Sat by Pulse 99 Oximetry Medications & Allergies - Medications Allergies/Adverse Reactions: Allergies cephalexin monohydrate [From Keflex] Allergy (Verified 02/26/19 12:13) Swelling Iodine and Iodide Containing Produc Allergy (Verified 02/26/19 12:13) Anaphylaxis latex Allergy (Verified 02/26/19 12:13) Rash Penicillins Allergy (Verified 02/26/19 12:13) Swelling Sulfa (Sulfonamide Antibiotics) Allergy (Verified 02/26/19 12:13) Rash Home Medications: Home Medications Medication Instructions Recorded Confirmed Last Taken Type ALPRAZolam [Xanax TAB] 0.5 mg PO BID PRN 02/26/19 02/28/19 02/27/19 20:00 History Gabapentin [Neurontin] 300 mg PO BID 02/26/19 02/28/19 01/19/19 08:00 History Active Medications: Generic Name Dose Route Start Last Admin Trade Name Ayo PRN Reason Stop Dose Admin Acetaminophen 650 mg 02/28/19 17:05 Tylenol PO Q6H PRN Pain MILD(1-3)/Fever >100.5/VALERA Alprazolam 0.5 mg 02/28/19 17:04 Xanax PO BID PRN Anxiety Diphenhydramine HCl 25 mg 02/28/19 17:05 Benadryl PO Q8H PRN Itching Docusate Sodium 100 mg 02/28/19 22:00 02/28/19 22:02 Colace PO Not Given BID ABBI Gabapentin 300 mg 02/28/19 22:00 02/28/19 22:03 Gabapentin PO Not Given BID ABBI Lactated Ringer's 1,000 mls @ 100 mls/hr 02/27/19 11:00 03/01/19 05:04 Lactated Ringers IV 100 mls/hr DIRECT ABBI Administration Lactated Ringer's 1,000 mls @ 125 mls/hr 02/28/19 18:00 Lactated Ringers IV DIRECT ABBI Metoclopramide HCl 10 mg 02/28/19 17:05 Reglan PO Q6H PRN Nausea And Vomiting Morphine Sulfate 2 mg 02/28/19 17:09 03/01/19 05:03 Morphine IV 2 mg Q4H PRN Administration Pain, Moderate (4-6) Ondansetron HCl 4 mg 02/28/19 17:05 02/28/19 19:40 Zofran IV 4 mg Q8H PRN Administration N/V unrelieved by Reglan Sodium Chloride 10 ml 02/28/19 17:05 Sodium Chloride Flush Syringe 10 Ml IV PRN PRN LINE FLUSH
[2019-03-01] MEDS ORDERED: METOCLOPRAMIDE 10 MG/2 ML INJ IV PRN (10:00)
[2019-03-01] MEDS ORDERED: HYDROcodone/APAP 7.5-325MG-15ML ORAL LIQD PO PRN (10:00)
[2019-03-01] MEDS: methOCARBAMOL 1,000 MG in SODIUM CHLORIDE 0.9% 250ML 250 ML IV SCH ×2 (10:35→18:29)
[2019-03-01] MEDS: GABAPENTIN 300 MG CAP PO SCH (15:20)
[2019-03-01] MEDS: DOCUSATE SODIUM 100 MG CAP PO SCH (15:20)
[2019-03-01 22:40] VITALS: BP 115/53
== END 2019-03-01 21:15 | disposition home or self-care (01) ==
LOC: OR 06:36 → OB 17:05
PROVIDERS: ADMIT Plastic Surgery; ATTEND Plastic Surgery
DX: C50.412 Malignant neoplasm of upper-outer quadrant of left female breast (principal); Z87.891 Personal history of nicotine dependence
CPT/HCPCS: 19303; 38525; 38792; 76098; 78800; 88307; 88331; 88342; 96365; 96367; 96375; 96376; A9541; C1789; G0378; J1100; J1170; J1580; J2250; J2270; J2405; J2704; J2710; J2765; J3010; J3370; J7120; Q4128; Q9968; 88309; 88333; J2800; J7050

== ENCOUNTER 2019-03-08 00:04 | Emergency (ER) | payer MEDICAID ==
[2019-03-08] MEDS ORDERED: ONDANSETRON 4 MG/2 ML INJ IV ONE (00:42)
[2019-03-08] MEDS ORDERED: SODIUM CHLORIDE 0.9% 1000 ML 1,000 ML IV ONE ×2 (00:42→01:56)
[2019-03-08] MEDS ORDERED: HYDROmorphone 1 MG/1 ML INJ IV ONE ×2 (00:50→02:18)
[2019-03-08] MEDS ORDERED: KETOROLAC 30 MG/1 ML INJ IV ONE (00:50)
[2019-03-08 01:07] LABS: Basophils % (Auto) 0.5 % (0.0-1.8); Eosinophils # (Auto) 0.4 K/mm3 (0.0-0.4); Eosinophils % (Auto) 4.7 % (0.0-4.3); Hematocrit 26.5 % (30.3-42.9); Hemoglobin 9.1 gm/dl (10.1-14.3); Lymphocytes # (Auto) 2.3 K/mm3 (1.2-5.4); Lymphocytes % (Auto) 24.8 % (13.4-35.0); Mean Corpuscular HGB Conc 34 % (30-34); Mean Corpuscular Volume 94 fl (79-97); Monocytes # (Auto) 0.8 K/mm3 (0.0-0.8); Monocytes % (Auto) 8.5 % (0.0-7.3); Platelet Count 363 K/mm3 (140-440); Red Blood Count 2.82 M/mm3 (3.65-5.03); Red Cell Distribution Width 14.1 % (13.2-15.2)
[2019-03-08 01:17] LABS: INR 0.85 (0.87-1.13); Partial Thromboplastin Time 32.3 Sec. (24.2-36.6)
--- NOTE | 2019-03-08 01:17 | XRay Report ---
. CHEST 1 VIEW INDICATION / CLINICAL INFORMATION: cp, tachycardia s/p b/l mastectomy. COMPARISON: 08/10/2012 FINDINGS: SUPPORT DEVICES: Port-A-Cath is in place on the right the tip in the region of the tricuspid valve. T here appear to be surgical drains over both breasts. Tissue expanders may be in place as well. HEART / MEDIASTINUM: No significant abnormality. LUNGS / PLEURA: No significant pulmonary or pleural abnormality. No pneumothorax. ADDITIONAL FINDINGS: No significant additional findings. IMPRESSION: 1 No significant postoperative abnormality. Signer Name: Felice Zhong MD Signed: 03/08/2019 1:13 AM Workstation Name: [id number]
[2019-03-08 01:31] LABS: Alanine Aminotransferase 20 units/L (7-56); Albumin 3.7 g/dL (3.9-5); BUN/Creatinine Ratio 14; Blood Urea Nitrogen 10 mg/dL (7-17); Calcium 9.5 mg/dL (8.4-10.2); Hemolysis Index 2
--- NOTE | 2019-03-08 01:36 | Emergency Department Report ---
ED Chest Pain HPI - General Chief Complaint: Chest Pain Stated Complaint: CP; DIZZINESS Time Seen by Provider: 03/08/19 00:41 Source: patient Mode of arrival: Ambulatory Limitations: No Limitations - History of Present Illness Initial Comments: 49-year-old female with a past medical history breast cancer status post bilateral mastectomy on February 21 visits to the hospital complains of left- sided chest pain, nausea, vomiting, and left leg pain which is now bilateral leg pain since 4 PM. Patient has not been able to eat or drink anything since sympt oms started. She complains of a deep pain to the left upper chest with shortness of breath. States it feels like a pulled muscle and a throbbing sensation. She complains of lightheadedness. She denies abdominal pain or fever. She also complains of pain to the left calf that then radiated to her left knee and thigh and now she has bilateral pain. She presents tachycardic and hypertensive. She has been prescribed Xanax and Neurontin as per medical record and states she takes Xanax only as needed above last dose several days ago. She states she completed chemotherapy prior to mastectomy and is scheduled to do radiation in the future. Surgeon Dr. Thacker reconstruction surgeon Dr. Gallo procedure done as per surgical note: s/p bilateral nipple sparing mastectomy with immediate reconstruction using a permanent silicone implant and FlexHD. Severity scale (0 -10): 10 - Related Data Home Medications Medication Instructions Recorded Confirmed Last Taken ALPRAZolam [Xanax TAB] 0.5 mg PO BID PRN 02/26/19 02/28/19 02/27/19 20:00 Gabapentin [Neurontin] 300 mg PO BID 02/26/19 02/28/19 01/19/19 08:00 Previous Rx's Medication Instructions Recorded Last Taken Type Promethazine [Phenergan] 25 mg PO Q8HR PRN #20 tab 03/08/19 Unknown Rx Allergies Allergy/AdvReac Type Severity Reaction Status Date / Time cephalexin monohydrate Allergy Swelling Verified 02/26/19 12:13 [From Keflex] Iodine and Iodide Containing Allergy Anaphylaxis Verified 02/26/19 12:13 Produc latex Allergy Rash Verified 02/26/19 12:13 Penicillins Allergy Swelling Verified 02/26/19 12:13 Sulfa (Sulfonamide Allergy Rash Verified 02/26/19 12:13 Antibiotics) Heart Score - HEART Score History: Slightly suspicious EKG: Normal Age: 45-65 Risk factors: No known risk factors Troponin: < normal limit HEART Score: 1 ED Review of Systems ROS: Stated complaint: CP; DIZZINESS Other details as noted in HPI Comment: All other systems reviewed and negative ED Past Medical Hx - Past Medical History Hx Diabetes: Yes (during ) Hx Arthritis: Yes (FINGERS) Hx HIV: No Additional medical history: BORN with only one left KIDNEY - Surgical History Hx Appendectomy: Yes Additional Surgical History: HERNIA REPAIR 4 X - Social History Smoking Status: Never Smoker - Medications Home Medications: Home Medications Medication Instructions Recorded Confirmed Last Taken Type ALPRAZolam [Xanax TAB] 0.5 mg PO BID PRN 02/26/19 02/28/19 02/27/19 20:00 History Gabapentin [Neurontin] 300 mg PO BID 02/26/19 02/28/19 01/19/19 08:00 History Promethazine [Phenergan] 25 mg PO Q8HR PRN #20 tab 03/08/19 Unknown Rx ED Physical Exam - General Limitations: No Limitations - Other Other exam information: General: No acute distress Head: Atraumatic Eyes: normal appearance ENT: Moist mucous membranes Neck: Normal appearance, no midline tenderness Chest: Clear to auscultation bilaterally Breast: Recent mastectomy noted with NICOLE drains in place. Patient did have leakage from ITP drain wound site upon return from CT. Tape removed and reveals that NICOLE drain remaining sutures in place. No signs of wound infection or purulent drainage. CV: Regular rate and rhythm Abdomen: Soft, normal bowel sounds, nontender, nondistended, no rebound or guarding Back: Normal inspection Extremity: Normal inspection infection, full range of motion Neuro: Alert O x 3, no facial asymmetry, speech clear, no gross motor sensory deficit Psych: Appropriate behavior Skin: No rash ED Course Vital Signs 03/08/19 03/08/19 03/08/19 00:27 01:06 01:11 Temperature 98.3 F Pulse Rate 133 H Respiratory 20 Rate Blood Pressure 165/104 Blood Pressure [Right] O2 Sat by Pulse 96 97 100 Oximetry 03/08/19 03/08/19 03/08/19 01:15 01:21 01:25 Temperature Pulse Rate Respiratory Rate Blood Pressure 126/70 111/77 111/77 Blood Pressure [Right] O2 Sat by Pulse 98 100 Oximetry 12/19/19 12/19/19 12/19/19 01:30 01:35 01:40 Temperature Pulse Rate 93 H Respiratory Rate Blood Pressure 120/66 120/66 Blood Pressure [Right] O2 Sat by Pulse 100 100 Oximetry 03/08/19 03/08/19 03/08/19 01:41 01:45 01:51 Temperature Pulse Rate Respiratory Rate Blood Pressure 120/66 114/65 114/65 Blood Pressure [Right] O2 Sat by Pulse 99 97 99 Oximetry 03/08/19 03/08/19 03/08/19 01:55 02:00 02:05 Temperature Pulse Rate Respiratory Rate Blood Pressure 114/65 110/60 110/60 Blood Pressure [Right] O2 Sat by Pulse 98 98 98 Oximetry 03/08/19 03/08/19 03/08/19 02:11 02:15 02:21 Temperature Pulse Rate Respiratory Rate Blood Pressure 114/65 112/65 112/65 Blood Pressure [Right] O2 Sat by Pulse 98 98 Oximetry 03/08/19 03/08/19 03/08/19 02:25 02:30 02:35 Temperature Pulse Rate Respiratory Rate Blood Pressure 112/65 107/58 107/58 Blood Pressure [Right] O2 Sat by Pulse 98 98 Oximetry 03/08/19 03/08/19 03/08/19 02:41 02:45 05:10 Temperature 98.1 F Pulse Rate 71 Respiratory 14 Rate Blood Pressure 112/65 113/62 Blood Pressure 111/67 [Right] O2 Sat by Pulse 98 98 99 Oximetry - Reevaluation(s) Reevaluation #1: 03/08/19 04:52 pt reports feeling better with Ed tx. included Dilaudid, Zofran, normal saline, and Toradol. - Consultations Consultation #1: 03/08/19 04:50 Dr Thacker contacted. She is familiar with the pt.Infromed of ed workup and neg results with pending doppler test. pt just saw plastic surgeon the other day and has f/u scheduled with med/onc and Dr oglesby next week. pt will be d/mejia home if doppler is neg. ARSENIO score - Arsenio Score Age > 65: (0) No Aspirin use within the Past 7 Days: (0) No 3 or more CAD Risk Factors: (0) No 2 or more Angina events in past 24 hrs: (0) No Known CAD with more than 50% Stenosis: (0) No Elevated Cardiac Markers: (0) No ST Deviation Greater than 0.5mm: (0) No ARSENIO Score: 0 ED Medical Decision Making - Lab Data Result diagrams: 03/08/19 00:56 03/08/19 00:56 Lab Results 03/08/19 03/08/19 03/08/19 Range/Units 00:56 00:56 00:56 WBC 9.2 (4.5-11.0) K/mm3 RBC 2.82 L (3.65-5.03) M/mm3 Hgb 9.1 L (10.1-14.3) gm/dl Hct 26.5 L (30.3-42.9) % MCV 94 (79-97) fl MCH 32 (28-32) pg MCHC 34 (30-34) % RDW 14.1 (13.2-15.2) % Plt Count 363 (140-440) K/mm3 Lymph % (Auto) 24.8 (13.4-35.0) % [place] % (Auto) 8.5 H (0.0-7.3) % Eos % (Auto) 4.7 H (0.0-4.3) % Baso % (Auto) 0.5 (0.0-1.8) % Lymph # 2.3 (1.2-5.4) K/mm3 [place] # 0.8 (0.0-0.8) K/mm3 Eos # 0.4 (0.0-0.4) K/mm3 Baso # 0.0 (0.0-0.1) K/mm3 Seg Neutrophils % 61.5 (40.0-70.0) % Seg Neutrophils # 5.7 (1.8-7.7) K/mm3 PT 11.7 L (12.2-14.9) Sec. INR 0.85 L (0.87-1.13) APTT 32.3 (24.2-36.6) Sec. Sodium 139 (137-145) mmol/L Potassium 4.0 (3.6-5.0) mmol/L Chloride 103.2 (98-107) mmol/L Carbon Dioxide 23 (22-30) mmol/L Anion Gap 17 mmol/L BUN 10 (7-17) mg/dL Creatinine 0.7 (0.7-1.2) mg/dL Estimated GFR > 60 ml/min BUN/Creatinine Ratio 14 % Glucose 113 H (65-100) mg/dL Calcium 9.5 (8.4-10.2) mg/dL Total Bilirubin 0.30 (0.1-1.2) mg/dL AST 25 (5-40) units/L ALT 20 (7-56) units/L Alkaline Phosphatase 69 (35-129) units/L Troponin T < 0.010 (0.00-0.029) ng/mL Total Protein 6.9 (6.3-8.2) g/dL Albumin 3.7 L (3.9-5) g/dL Albumin/Globulin Ratio 1.2 % Lipase 11 L (13-60) units/L 03/08/ Range/Units 05:09 WBC (4.5-11.0) K/mm3 RBC (3.65-5.03) M/mm3 Hgb (10.1-14.3) gm/dl Hct (30.3-42.9) % MCV (79-97) fl MCH (28-32) pg MCHC (30-34) % RDW (13.2-15.2) % Plt Count (140-440) K/mm3 Lymph % (Auto) (13.4-35.0) % [place] % (Auto) (0.0-7.3) % Eos % (Auto) (0.0-4.3) % Baso % (Auto) (0.0-1.8) % Lymph # (1.2-5.4) K/mm3 [place] # (0.0-0.8) K/mm3 Eos # (0.0-0.4) K/mm3 Baso # (0.0-0.1) K/mm3 Seg Neutrophils % (40.0-70.0) % Seg Neutrophils # (1.8-7.7) K/mm3 PT (12.2-14.9) Sec. INR (0.87-1.13) APTT (24.2-36.6) Sec. Sodium (137-145) mmol/L Potassium (3.6-5.0) mmol/L Chloride (98-107) mmol/L Carbon Dioxide (22-30) mmol/L Anion Gap mmol/L BUN (7-17) mg/dL Creatinine (0.7-1.2) mg/dL Estimated GFR ml/min BUN/Creatinine Ratio % Glucose (65-100) mg/dL Calcium (8.4-10.2) mg/dL Total Bilirubin (0.1-1.2) mg/dL AST (5-40) units/L ALT (7-56) units/L Alkaline Phosphatase (35-129) units/L Troponin T < 0.010 (0.00-0.029) ng/mL Total Protein (6.3-8.2) g/dL Albumin (3.9-5) g/dL Albumin/Globulin Ratio % Lipase (13-60) units/L - EKG Data -: EKG Interpreted by Me EKG shows normal: sinus rhythm, ST-T waves (no stemi) Rate: tachycardia (127) - EKG Data 03/08/19 reat ekg without ischemia - Radiology Data Radiology results: report reviewed . CHEST 1 VIEW INDICATION / CLINICAL INFORMATION: cp, tachycardia s/p b/l mastectomy. COMPARISON: 08/10/2012 FINDINGS: SUPPORT DEVICES: Port-A-Cath is in place on the right the tip in the region of the tricuspid valve. There appear to be surgical drains over both breasts. Tissue expanders may be in place as well. HEART / MEDIASTINUM: No significant abnormality. LUNGS / PLEURA: No significant pulmonary or pleural abnormality. No pneumothorax. ADDITIONAL FINDINGS: No significant additional findings. IMPRESSION: 1 No significant postoperative abnormality. CT of the abdomen and pelvis with contrast INDICATION: Postop nausea and vomiting COMPARISON: 05/17/2018 FINDINGS: There have been bilateral mastectomies with breast implants in place. Lung bases are clear. There is a small pericardial effusion. The liver, spleen, pancreas, adrenal glands and left kidney appear normal. No definite gallbladder or biliary tree abnormality. No fluid or adenopathy in the upper abdomen. 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 CT of the pelvis shows no uterine or adnexal masses. There is a small amount of free pelvic fluid. Bladder is moderately distended. No diverticulosis or diverticulitis. No bowel obstruction is seen. What appears to be the appendix is normal. There is no diverticulosis or diverticulitis. No significant skeletal lesion. IMPRESSION: Negative study. Automated exposure control was utilized to diminish radiation dose. CT of the chest without contrast INDICATION: Left-sided chest pain COMPARISON: None FINDINGS: There have been recent bilateral mastectomies with breast implants in place. Surgical drains are seen. There is no postoperative fluid collection or abscess. Port-A-Cath is seen on the right. There is no hilar or m ediastinal adenopathy. There is a small pericardial effusion but no pleural fluid. No thoracic aortic aneurysm or significant vascular calcification. Lung windows show no nodules, masses or infiltrates with only minimal basilar atelectasis. No significant skeletal lesion. IMPRESSION: Negative study Ventilation/perfusion scan lungs INDICATION: Chest pain and shortness of breath, recent hysterectomy TECHNIQUE: The patient was administered 3.89 mCi of technetium 99 MAA for the perfusion phase of the study and 16.22 mCi of xenon- 133 for the ventilation phase FINDINGS: Both the ventilation and perfusion phases are normal. There is no air-trapping or ventilatory abnormality. There is homogeneous perfusion to both lungs with no focal segmental or subsegmental per fusion defects and there is no evidence of pulmonary embolus. DUPLEX DOPPLER LOWER EXTREMITY VEINS, BILATERAL INDICATION: b/l leg pain, hx of breast ca. TECHNIQUE: Duplex doppler imaging was performed through the veins of both lower extremities using venous compression and other maneuvers. COMPARISON: None available. FINDINGS: Right Common Femoral vein: Negative. Right Superficial Femoral vein: Negative. Right Popliteal vein: Negative. Right Calf veins: Negative. Left Common Femoral vein: Negative. Left Superficial Femoral vein: Negative. Left Popliteal vein: Negative. Left Calf veins: Negative. Additional findings: None. IMPRESSION: 1. No sonographic evidence for DVT in either lower extremity. - Medical Decision Making Patient had extensive ED workup without any acute abnormalities. No signs of PE, postop complications, DVT, infection, or persistent nausea vomiting. Case was discussed with patient's breast surgeon who states that she has several appointments coming up. Patient has pain medication and nausea medication at home. Symptoms have improved while in the ED including improvement in heart rate and bp. No Suspicion for CAD given her lack of risk factors, EKG without ischemic findings 2, troponin negative 2. Outpatient follow-up will be advised. - Differential Diagnosis MD, PE, postop infection, intra-abdominal infection, gastritis, anxiety DVT Critical Care Time: No Critical care attestation.: If time is entered above; I have spent that time in minutes in the direct care of this critically ill patient, excluding procedure time. ED Disposition Clinical Impression: Atypical chest pain, Nausea & vomiting, Musculoskeletal pain, Anemia, S/P bilateral mastectomy, Breast cancer Disposition: TO HOME OR SELFCARE Is pt being admited?: No Does the pt Need Aspirin: No Condition: Stable Instructions: Chest Pain (ED), Acute Nausea and Vomiting (ED), Anemia (ED), Musculoskeletal Pain (ED) Additional Instructions: Take the medication as prescribed. Continue your current pain medication and nausea medication as prescribed. Follow up with your doctors as scheduled. Return if symptoms worsen as indicated by your discharge instructions. Prescriptions: Promethazine [Phenergan] 25 mg PO Q8HR PRN #20 tab PRN Reason: Nausea Referrals: PRIMARY CARE, [Primary Care Provider] - 3-5 Days Time of Disposition: 06:07
--- NOTE | 2019-03-08 03:49 | Nuclear Medicine Report ---
Ventilation/perfusion scan lungs INDICATION: Chest pain and shortness of breath, recent hysterectomy TECHNIQUE: The patient was administered 3.89 mCi of technetium 99 MAA for the perfusion phase of the study and 16.22 mCi of xenon-133 for the ventilation phase FINDINGS: Both the ventilation and perfusion phases are normal. There is no air-trapping or ventilato ry abnormality. There is homogeneous perfusion to both lungs with no focal segmental or subsegmental perfusion defects and there is no evidence of pulmonary embolus. Signer Name: Felice Zhong MD Signed: 03/08/2019 3:45 AM Workstation Name: [id number]
--- NOTE | 2019-03-08 03:57 | Cat Scan Report ---
CT of the abdomen and pelvis with contrast INDICATION: Postop nausea and vomiting COMPARISON: 05/17/2018 FINDINGS: There have been bilateral mastectomies with breast implants in place. Lung bases are clear. There is a small pericardial effusion. The liver, spleen, pancreas, adrenal glands and left kidney a ppear normal. No definite gallbladder or biliary tree abnormality. No fluid or adenopathy in the uppe r abdomen. 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 CT of the pelvis shows no uterine or adnexal masses. There is a small amount of free pelvic fluid. Bl adder is moderately distended. No diverticulosis or diverticulitis. No bowel obstruction is seen. Wha t appears to be the appendix is normal. There is no diverticulosis or diverticulitis. No significant skeletal lesion. IMPRESSION: Negative study. Automated exposure control was utilized to diminish radiation dose. CT of the chest without contrast INDICATION: Left-sided chest pain COMPARISON: None FINDINGS: There have been recent bilateral mastectomies with breast implants in place. Surgical drain s are seen. There is no postoperative fluid collection or abscess. Port-A-Cath is seen on the right. There is no hilar or mediastinal adenopathy. There is a small pericardial effusion but no pleural flu id. No thoracic aortic aneurysm or significant vascular calcification. Lung windows show no nodules, masses or infiltrates with only minimal basilar atelectasis. No significant skeletal lesion. IMPRESSION: Negative study Automated exposure control was utilized to diminish radiation dose. Signer Name: Felice Zhong MD Signed: 03/08/2019 3:53 AM Workstation Name: [id number]
--- NOTE | 2019-03-08 05:38 | Vascular Lab Report ---
DUPLEX DOPPLER LOWER EXTREMITY VEINS, BILATERAL INDICATION: b/l leg pain, hx of breast ca. TECHNIQUE: Duplex doppler imaging was performed through the veins of both lower extremities using venous samir kal and other maneuvers. COMPARISON: None available. FINDINGS: Right Common Femoral vein: Negative. Right Superficial Femoral vein: Negative. Right Popliteal vein: Negative. Right Calf veins: Negative. Left Common Femoral vein: Negative. Left Superficial Femoral vein: Negative. Left Popliteal vein: Negative. Left Calf veins: Negative. Additional findings: None. IMPRESSION: 1. No sonographic evidence for DVT in either lower extremity. Signer Name: Felice Zhong MD Signed: 03/08/2019 5:34 AM Workstation Name: [id number]
[2019-03-08 06:56] VITALS: BP 117/68
== END 2019-03-08 06:56 | disposition home or self-care (01) ==
LOC: ED 00:04
DX: R07.89 Other chest pain (principal); R11.2 Nausea with vomiting, unspecified; D64.9 Anemia, unspecified; E11.9 Type 2 diabetes mellitus without complications; M19.90 Unspecified osteoarthritis, unspecified site; Z90.13 Acquired absence of bilateral breasts and nipples; Z85.3 Personal history of malignant neoplasm of breast; Z90.49 Acquired absence of other specified parts of digestive tract; Z79.899 Other long term (current) drug therapy; Z91.041 Radiographic dye allergy status; Z88.8 Allergy status to other drugs, medicaments and biological substances
CPT/HCPCS: 36415; 71045; 71250; 74176; 78582; 80053; 83690; 84484; 85025; 85610; 85730; 93005; 93010; 93970; 96361; 96374; 96375; 96376; 99285; A9540; A9558; J1170; J1885; J2405; J7030

== ENCOUNTER 2019-04-18 06:08 | Day surgery (SDC) | payer MEDICAID ==
[~2019-04-18 06:08] MED LIST changes: -BACITRACIN 50,000 UNIT VIAL IR ONE; -CELECOXIB 200 MG CAP PO NR; -GABAPENTIN 300 MG CAP PO NR; -GENTAMICIN 40 MG/ML VIAL 2 ML IV ONE; -METHYLENE BLUE 50 MG/10 ML AMP IRRIGATION ONE; -MIDAZOLAM 2 MG/2 ML INJ IV NR; -SODIUM CHLORIDE 0.9% IRR 1,000 ML BOTTLE IR ONE; -SODIUM CHLORIDE 0.9% P/F 10 ML VIAL INFILTRATI ONE; +VANCOMYCIN/NS 1 GM/250 ML 1 GM/250 ML BAG IV NR; -WATER FOR IRRIG STERILE 1,500 ML BOTTLE IR ONE; +ceFAZolin/Water 2 GM/20 ML 2 GM/20 ML SYRINGE IV NR; -fentaNYL 100 MCG/2 ML INJ IV NR
[2019-04-18] MEDS ORDERED: BACTERIOSTATIC SODIUM CHLORIDE 0.9% 30 ML VIAL INFILTRATI ONE (06:32)
--- NOTE | 2019-04-18 06:52 | Anesthesia Consultation ---
Anesthesia Consult and Med Hx - Airway Anesthetic Teeth Evaluation: Good ROM Head & Neck: Adequate Mental/Hyoid Distance: Adequate Mallampati Class: Class I Intubation Access Assessment: Good - Pulmonary Exam CTA: Yes - Cardiac Exam Cardiac Exam: RRR - Pre-Operative Health Status ASA Pre-Surgery Classification: ASA3 Proposed Anesthetic Plan: General, MAC - Pulmonary Hx Smoking: Yes (QUIT 20 YRS AGO) - Hematic Hx Anemia: Yes - Other Systems Hx Alcohol Use: Yes (occasional) Hx Substance Use: No Hx Cancer: Yes (breast) - Additional Comments Anesthesia Medical History Comments: H/O fibromyalgia and neuropathy 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
--- NOTE | 2019-04-18 06:55 | Anesthesia Day of Surgery ---
Anesthesia Day of Surgery - Day of Surgery Patient Examined: Yes Patient H&P Reviewed: Yes Patient is NPO: Yes
[2019-04-18] MEDS ORDERED: HYDROmorphone 1 MG/1 ML INJ IV PRN (06:56)
[2019-04-18] MEDS ORDERED: ONDANSETRON 4 MG/2 ML INJ IV PRN (06:56)
[2019-04-18] MEDS ORDERED: oxyCODONE /ACETAMINOPHEN 5-325MG TAB PO PRN (06:56)
[2019-04-18] MEDS ORDERED: LACTATED RINGERS 1,000 ML IV SCH (07:00)
[2019-04-18] MEDS ORDERED: FAMOTIDINE 20 MG/2 ML INJ IV NR (07:00)
[2019-04-18] MEDS ORDERED: MIDAZOLAM 2 MG/2 ML INJ IV ONE (07:05)
[2019-04-18 07:25] LABS: Basophils % (Auto) 0.6 % (0.0-1.8); Eosinophils # (Auto) 0.2 K/mm3 (0.0-0.4); Hematocrit 32.9 % (30.3-42.9); Hemoglobin 10.9 gm/dl (10.1-14.3); Lymphocytes # (Auto) 1.5 K/mm3 (1.2-5.4); Mean Corpuscular HGB Conc 33 % (30-34); Mean Corpuscular Volume 90 fl (79-97); Monocytes # (Auto) 0.3 K/mm3 (0.0-0.8); Monocytes % (Auto) 5.8 % (0.0-7.3); Platelet Count 239 K/mm3 (140-440); Red Blood Count 3.66 M/mm3 (3.65-5.03); Red Cell Distribution Width 13.8 % (13.2-15.2)
[2019-04-18] MEDS ORDERED: fentaNYL 100 MCG/2 ML INJ ONE (07:50)
[2019-04-18] MEDS ORDERED: PROPOFOL 200 MG/20 ML VIAL IV ONE (07:50)
[2019-04-18] MEDS ORDERED: MIDAZOLAM 2 MG/2 ML INJ ONE (07:50)
[2019-04-18] MEDS ORDERED: LIDOCAINE MPF (2%) 20 MG/1 ML VIAL 5 ML ONE (07:50)
[2019-04-18] MEDS ORDERED: BUPIVACAINE-EPINEPHRINE/PF 0.25%-1:200,000 (30 ML) VIAL INFILTRATI ONE (07:54)
[2019-04-18] MEDS ORDERED: NEOMY 3.5 MG/BACIT 400 UNITS/POLY B 5000 UNITS/GM OINT PACKET TP ONE (07:54)
[2019-04-18] MEDS ORDERED: MINERAL OIL Light (Sterile) 10 ML VIAL TP ONE (07:55)
[2019-04-18] MEDS ORDERED: LIDOCAINE 1%/EPINEPHRINE 1:100,000 VIAL (20 ML) INFILTRATI ONE (07:55)
[2019-04-18] MEDS ORDERED: LIDOCAINE-MPF (1%) 10 MG/1 ML VIAL 5 ML ONE (07:56)
[2019-04-18] MEDS ORDERED: BUPIVACAINE/PF (0.25%) 2.5 MG/ML 30 ML VIAL INFILTRATI ONE (08:03)
[2019-04-18] MEDS ORDERED: ONDANSETRON 4 MG/2 ML INJ ONE (08:16)
[2019-04-18] MEDS ORDERED: ePHEDrine SULFATE 50 MG/1 ML INJ ONE (08:16)
[2019-04-18] MEDS ORDERED: METOCLOPRAMIDE 10 MG/2 ML INJ ONE (08:16)
[2019-04-18] MEDS ORDERED: dexAMETHasone 20 MG/5 ML VIAL ONE (08:16)
[2019-04-18] MEDS ORDERED: WATER FOR IRRIG STERILE 1,500 ML BOTTLE IR ONE (08:42)
[2019-04-18] MEDS ORDERED: PHENYLEPHRINE/NS 1,000 MCG/10 ML SYRINGE (OR USE) IV ONE (08:56)
[2019-04-18] MEDS ORDERED: KETOROLAC 30 MG/1 ML INJ ONE (08:56)
--- NOTE | 2019-04-18 09:35 | Short Stay Summary ---
Short Stay Documentation Date of service: 04/18/19 - History H&P: obtained from office - Allergies and Medications Current Medications: Allergies cephalexin monohydrate [From Keflex] Allergy (Verified 04/17/19 09:36) Swelling Iodine and Iodide Containing Produc Allergy (Verified 04/17/19 09:36) Anaphylaxis latex Allergy (Verified 04/17/19 09:36) Rash Penicillins Allergy (Verified 04/17/19 09:36) Swelling Sulfa (Sulfonamide Antibiotics) Allergy (Verified 04/17/19 09:36) Rash Home Medications Medication Instructions Recorded Confirmed Last Taken Type ALPRAZolam [Xanax TAB] 0.5 mg PO BID PRN 02/26/19 04/18/19 04/18/19 06:15 History HYDROcodone/APAP 5-325 [[place] 1 each PO Q6HR PRN #15 tablet 04/18/19 Unknown Rx 5/325] Active Medications Famotidine (Pepcid) 20 mg IV PREOP NR Stop: 04/18/19 23:45 Last Admin: 04/18/19 07:17 Dose: 20 mg Documented by: Hydromorphone HCl (Dilaudid) 0.5 mg IV Q10MIN PRN PRN Reason: Pain , Severe (7-10) Stop: 04/18/19 14:53 Vancomycin HCl (Vancomycin/Ns 1 Gm/250 Ml) 1 gm in 250 mls @ 167.007 mls/hr IV PREOP NR; Protocol Stop: 04/18/19 16:00 Last Admin: 04/18/19 07:37 Dose: 167.007 mls/hr Documented by: Lactated Ringer's (Lactated Ringers) 1,000 mls @ 42 mls/hr IV DIRECT ABBI Last Admin: 04/18/19 07:13 Dose: 42 mls/hr Documented by: Ondansetron HCl (Zofran) 4 mg IV ONCE PRN PRN Reason: Nausea And Vomiting Oxycodone/Acetaminophen (Percocet 5/325) 1 tab PO ONCE PRN PRN Reason: Pain, Moderate (4-6) - Brief post op/procedure progress note Date of procedure: 04/18/19 Pre-op diagnosis: Left breast ADH with history of left breast cancer Post-op diagnosis: same Procedure: Left nipple areolar complex excision Anesthesia: GETA Findings: Left nipple areolar complex excision given ADH from posterior nipple margin Surgeon: KAILEE GAMBLE Estimated blood loss: minimal Pathology: list Specimen disposition: to lab Condition: stable - Disposition Condition at discharge: Good Disposition: TO HOME OR SELFCARE Short Stay Discharge Plan Activity: other (no heavy lifting) Diet: regular Wound: keep clean and dry (remove dressing on Thrusday; may shower) Follow up with: NAVJOT COLLIER [Primary Care Provider] - 7 Days KAILEE GAMBLE MD [Staff Physician] - 7 Days Prescriptions: HYDROcodone/APAP 5-325 [[place] 5/325] 1 each PO Q6HR PRN #15 tablet PRN Reason: Pain
[2019-04-18 09:49] VITALS: BP 123/70
--- NOTE | 2019-04-18 09:55 | Operative Report ---
Operative Report Operative Report: Operative Report: Date of Service: April 18, 2019 Preoperative diagnosis: Left breast cancer of the upper outer quadrant Postoperative diagnosis: Same Procedure: Left nipple areolar complex Surgeon: Tanika Thacker M.D. Anesthesia: Gen. Findings: Left breast nipple areolar complex excision Complications: None Drains: None Estimated blood loss: Minimal Disposition: PACU in good condition Indications for operative procedure: This is a 49-year-old lady with stage II l eft breast cancer of the upper outer quadrant, IDCA grade 3 [id number] ER 10% (known cancer at 1:00 position 8 cm from the nipple). She completed neoadjuvant chemotherapy of AC/T and she recently underwent bilateral nipple sparing with immediate bilateral implant placement in February 2019. Final pathology with no residual left breast carcinoma and posterior nipple breast tissue with a focus of ADH. Recommendations were to proceed with left nipple/NAC excision given atypia and high risk for developing breast cancer. She wished to proceed with the above procedure. Procedure in detail: The patient was taken to the operating room and was placed supine. Gen. anesthesia was administered. Bilateral chest and axillas were prepped and draped in the normal sterile operative fashion. Timeout was perfo rmed. Left NAC markings were made. Attention was taken towards the left breast mound. A skin incision was made with a 15 blade knife with dissection take down to the subcutaneous tissues. The left nipple with NAC was completely excised in an ecclipical incision with excision taken down to the mesh. The mesh and implant were left intact and unharmed. Hemostasis was obtained using the bovie cautery with good perfusion present. The subcutaneous tissues were approximated and closed using an interrupted 3-0 Vicryl and the skin brought together and closed using a running 4-0 Monocryl followed by dermabond. She tolerated surgery very well and was awaken from anesthesia without any complications and then transported to PACU in good condition.
--- NOTE | 2019-04-18 12:51 | Post Anesthesia Evaluation ---
- Post Anesthesia Evaluation Patient Participated: Yes Airway Patent: Yes Stable Respiratory Function: Yes Temp > 96.8F: Yes Pain Manageable: Yes Adequeate Hydration: Yes Anesthesia Complications: No
== END 2019-04-18 10:25 | disposition home or self-care (01) ==
LOC: OR 06:08
PROVIDERS: ATTEND Surgery
DX: C50.412 Malignant neoplasm of upper-outer quadrant of left female breast (principal); G62.9 Polyneuropathy, unspecified; M79.7 Fibromyalgia; F41.9 Anxiety disorder, unspecified; M19.90 Unspecified osteoarthritis, unspecified site; Z91.040 Latex allergy status; Z88.0 Allergy status to penicillin; Z88.2 Allergy status to sulfonamides; Z91.041 Radiographic dye allergy status; Z88.8 Allergy status to other drugs, medicaments and biological substances; Z79.899 Other long term (current) drug therapy; Z87.891 Personal history of nicotine dependence; Z90.49 Acquired absence of other specified parts of digestive tract; Z98.51 Tubal ligation status; Z90.13 Acquired absence of bilateral breasts and nipples; Z80.3 Family history of malignant neoplasm of breast; Z80.41 Family history of malignant neoplasm of ovary; Z98.890 Other specified postprocedural states; Z72.89 Other problems related to lifestyle
CPT/HCPCS: 19120; 36415; 85025; 88307; J1100; J1885; J2250; J2370; J2405; J2704; J2765; J3010; J3370; J7120; A6250